=== PATIENT | female | born 1955 | race African-American/Black ===

== ENCOUNTER 2017-01-24 08:11 | Day surgery (SDC) | payer OTHER ==
--- NOTE | 2016-12-31 09:12 | HP ---
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 According to the patient, she noticed the lesion about a year ago. It appears to becoming progressively larger in size. She is concerned about its etiology. She presents for formal excision. PAST MEDICAL HISTORY: Significant for hypertension, hypercholesterolemia, and arthritis. No history of heart disease, diabetes, respiratory, renal, or hepatic insufficiency. PAST SURGICAL HISTORY: Significant for excision of a left axillary mass of benign etiology in 2004. She has also had 3 sections. She has also had right knee arthroscopic surgery. ALLERGIES: None known. REGULAR MEDICATIONS: Include antihypertensives as well as antiinflammatories. SOCIAL HISTORY: Negative tobacco. Patient did smoke up until 10 years ago. Essentially negative alcohol. FAMILY HISTORY: Essentially nil. REVIEW OF SYSTEMS: Nil. PHYSICAL EXAMINATION: Back: On examination, the patient has a 4 x 5-cm soft tissue mass of the right upper back. The mass appears to be confined to the subcutaneous space but is somewhat tethered in its posterior plane. There are no surrounding satellite lesions. There is no regional lymphadenopathy. IMPRESSION: Soft tissue mass, right upper back. PLAN: Excision, soft tissue neoplasia, right upper back. Indications, alternatives, and possible complications reviewed. Consent obtained. Patient to be seen preoperatively by Dr. Stacy Gamboa. Please refer to her notes for those details. ZAYNAB ROSS M.D. [id number] cc: Stacy Gamboa MD
[2017-01-16 12:57] VITALS: BMI 33.9
[~2017-01-24 08:11] MED LIST: LACTATED RINGERS SOLUTION 1,000 ML IV SCH; ONDANSETRON 4 MG/2 ML VIAL IVPUSH PRN; PROMETHAZINE HCL 25 MG/1 ML VIAL IVPUSH PRN; oxyCODONE HCL 5 MG TABLET PO PRN
[2017-01-24 09:08] VITALS: TEMP 97.7
[2017-01-24] MEDS ORDERED: LIDOCAINE HCL 1%, 10 MG/ML (20ML VIAL) ONE (11:35)
[2017-01-24] MEDS ORDERED: MIDAZOLAM HCL 2 MG/2 ML SINGLE DOSE VIAL ONE (11:55)
[2017-01-24] MEDS ORDERED: LIDOCAINE HCL/PF 2% SDV 5ML VIAL ONE (12:09)
[2017-01-24] MEDS ORDERED: ceFAZolin SODIUM 1 GM VIAL ONE (12:09)
[2017-01-24] MEDS ORDERED: ONDANSETRON 4 MG/2 ML VIAL ONE (12:45)
[2017-01-24] MEDS ORDERED: DEXAMETHASONE SOD PHOSPHATE 4 MG/1 ML VIAL ONE (12:45)
[2017-01-24 14:03] VITALS: BP 122/71; PULSE 58
--- NOTE | 2017-01-25 12:52 | OP ---
DATE OF OPERATION: 01/24/2017 PREOPERATIVE DIAGNOSIS: Soft tissue mass, right upper back. POSTOPERATIVE DIAGNOSIS: Subfascial lipomatous neoplasia, right upper back. PROCEDURE: Excision of subfascial lipomatous neoplasia, right upper back/intermediate wound closure (5 cm). SURGEON: Matthieu Miller MD SUPERVISOR SKI PRODUCTION: None. ANESTHESIA: Kirby Dowell MD; Local/MAC (lidocaine1% with epinephrine, 20 mL). HISTORY: A 62-year-old woman with an enlarging soft tissue mass of the right upper back over the course of the past year. On examination, patient with a 4 x 5-cm obvious palpable mass involving the subcutaneous tissues of the right upper back. She presents for excision. PROCEDURE: With the patient in the prone position, under anesthesia, the right upper back was prepped and draped in the usual sterile fashion using chlorhexidine. Lidocaine with epinephrine was used to infiltrate the soft tissues to create a field block at the intended level of excision. A 5-cm transverse incision was made directly over the abnormality and deepened into the subcutaneous space. In the subcutaneous space, an ill-defined lipomatous neoplasia was encountered. It had multiple projections which interspersed with the [place] subcutaneous tissue. The mass approached the underlying dermis as well. Using sharp dissection, with meticulous dissection all of the obvious neoplasia was freed. In the deeper plane, the mass was noted to be emanating through the fascia of the musculature. Using sharp dissection, the lesion was delivered ultimately without difficulty, teasing it from the muscle itself. After adequate hemostasis and irrigation, the wound was closed in layers. The fascia was approximated using interrupted 3-0 chromic sutures. The subcutaneous layer was approximated using interrupted 3-0 chromic sutures. Subcuticular layer was approximated using interrupted 4-0 Biosyn suture. Skin edges were approximated using continuous 5-0 nylon suture. Prior to complete closure of the wound, a 1/4-inch Promise drain was placed in the depths of the wound and left to exit through the medial corner of the incision where it was tacked to the skin with 5-0 nylon suture material. Bacitracin applied. Dressing applied. Procedure terminated. NEEDLE AND INSTRUMENT COUNT: Correct. ESTIMATED BLOOD LOSS: Minimal. SPECIMEN: Subfascial lipomatous neoplasia, right upper back. DRAINS: One 1/4-inch Promise. IMPLANTS: None. The patient tolerated the procedure. The procedure was terminated. Wisam LANCASTER/[id number] cc: Stacy Gamboa MD MTDD
--- NOTE | 2017-01-28 13:49 | PATH ---
Surgical Pathology Report Patient Name: ELISA WEAVER [facility]. Rec. #: [id number] /Age/Gender: 1955 (Age: 62) / F Account: [id number] Location: [facility] AMBUL[facility]ORY Taken: 01/24/2017 Received: 01/27/2017 Reported: 01/28/2017 Physicians: Matthieu Miller M.D. Specimen(s) Received LIPOMA RIGHT UPPER BACK Clinical History Right upper back benign neoplasm Final Diagnosis SOFT TISSUE, RIGHT UPPER BACK, NEOPLASM, EXCISION: CONSISTENT WITH FIBROLIPOMA. Electronically Signed Jama Frias M.D. Gross Description Received in formalin labeled "lipoma neoplasia right upper back" is a 5.0 x 4.5 x 1.3 cm portion of yellow, lobulated adipose tissue. Sectioning reveals yellow, smooth fat with foci of fibrous tissue. No areas of hemorrhage or necrosis are identified. [employer] Teacher sections are submitted in 3 cassettes. /01/27/2017 saudi01/27/2017
== END 2017-01-24 14:10 | disposition home or self-care (01) ==
LOC: FASU 08:11
PROVIDERS: ATTEND Surgery
PROC: 0JB70ZZ Excision of Back Subcutaneous Tissue and Fascia, Open Approach (ICD-10-PCS; principal; 2017-01-24 12:24)
DX: D21.6 Benign neoplasm of connective and other soft tissue of trunk, unspecified (principal); I10 Essential (primary) hypertension; E78.00 Pure hypercholesterolemia, unspecified; M19.90 Unspecified osteoarthritis, unspecified site
CPT/HCPCS: 88304-TC